=== PATIENT | male | born 1990 | race American Indian/Alaskan Native ===

== ENCOUNTER 2021-12-08 11:21 | Emergency (ER) | payer OTHER ==
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
[2021-12-08 13:54] VITALS: BP 126/76
== END 2021-12-08 13:55 | disposition home or self-care (01) ==
LOC: ED 11:21
DX: M54.2 Cervicalgia (principal); R07.9 Chest pain, unspecified; M54.9 Dorsalgia, unspecified; V89.2XXA Person injured in unspecified motor-vehicle accident, traffic, initial encounter; Y93.89 Activity, other specified; Y92.89 Other specified places as the place of occurrence of the external cause; Y99.8 Other external cause status
CPT/HCPCS: 99282